=== PATIENT | female | born 1995 | race Caucasian/White ===

== ENCOUNTER → 2016-12-11 | Outpatient (CLI) | payer OTHER, MEDICARE ==
[~2016-12-11] MED LIST: HYDR-3812 PO; IBUP-1773 PO; IRON15TA3 PO; LEVO50TA6 PO; PREN-53 PO
--- NOTE | 2016-12-11 16:08 | Diagnostic Imaging Report ---
First trimester OB ultrasound. INDICATION: Dating. FINDINGS: There is a normal-appearing single intrauterine . An embryo is seen with cardiac activity at 130 beats per minute. The ovaries are not seen, probably obscured by bowel gas. The crown-rump length is at 6 weeks and 4 days. ALICE is 08/02/17. IMPRESSION: Live single intrauterine . Dictated by: Dictated on workstation # [id number]
== END ==
LOC: RAD 15:16
PROVIDERS: ATTEND Family Medicine
DX: Z36.87 Encounter for antenatal screening for uncertain dates (principal); Z3A.01 Less than 8 weeks gestation of pregnancy
CPT/HCPCS: 76801

== ENCOUNTER → 2017-03-17 | Outpatient (CLI) | payer OTHER, MEDICARE ==
[~2017-03-17] MED LIST changes: +ACHD5005 PO; -HYDR-3812 PO
--- NOTE | 2017-03-17 15:31 | Diagnostic Imaging Report ---
INDICATION: survey. TECHNIQUE: Multiple real-time grayscale images were obtained over the gravid uterus. COMPARISON: There are no prior studies available for comparison. FINDINGS: There is a single live fetus in variable presentation. heart motion was noted, and a rate of 147 BPM was recorded. There were no abnormalities identified. The growth parameters are fairly uniform. The placenta is fundal, and there is no previa. The amniotic fluid volume is within normal limits. The cervix was identified and measures 4 cm in length. IMPRESSION: 1. There is a single live fetus of approximately 20 weeks 3 days gestation, +/-1.5 weeks. The EDC is August 01, 2017. 2. There were no abnormalities identified. 3. The growth parameters are fairly uniform. Biometrical measurements are as follows: Biparietal 4.79 cm, age 20 weeks 4 days. Head circumference 17.97 cm, age 20 weeks 3 days. Abdominal circumference 14.26 cm, age 19 weeks 5 days. Femur length 3.37 cm, age 20 weeks 4 days. Sonographic estimate age: 20 weeks 3 days. Sonographic estimated date of delivery: 08/01/2017. Estimated Weight: 333 gm (+/- 49 gm). LMP percentile: 35%. heart rate: 147 beats per minute. Cervical length: 4.0 cm. number: 1 of 1. Dictated by: Dictated on workstation # [id number]
== END ==
LOC: RAD 09:28
PROVIDERS: ATTEND Family Medicine
DX: Z36.89 Encounter for other specified antenatal screening (principal); Z3A.20 20 weeks gestation of pregnancy
CPT/HCPCS: 76805; 76817

== ENCOUNTER 2017-07-28 06:00 | Inpatient (IN) | payer OTHER, MEDICARE ==
[2017-07-28] VITALS (34 sets, daily range): BP systolic 97–124; BP diastolic 54–85
[~2017-07-28] VITALS: Ht 162.6 cm; Wt 76.8 kg
[~2017-07-28 06:00] MED LIST changes: +METHYLERGONOVINE 0.2 MG (MEHTERGINE) TAB PO SCH
--- OUTSIDE RECORDS SUMMARY | 2017-07-28 06:35 | XMS REPORT | Continuity of Care Document ---
Author Author [facility] Address Unknown Phone Unavailable Allergies Active Description Code Type Severity Reaction Onset Reported/Identified Relationship to Patient Clinical Status Yes No Known Allergies [id number] Drug Allergy Unknown N/A 12/13/2014 Medications There is no data. Problems Date Dx Coded Attending Type Code Diagnosis Diagnosed By 05/20/2014 MARQUITA MALDONADO MD, Ot V28.89 08/05/2014 MARQUITA MALDONADO MD, Ot V28.81 11/21/2014 MARQUITA MALDONADO MD, Ot O36.8130 DECREASED MOVEMENTS, THIRD TRIMEST 11/21/2014 MARQUITA MALDONADO MD, Ot Z3A.36 36 WEEKS GESTATION OF 12/13/2014 MARQUITA MALDONADO MD Ot V28.89 12/13/2014 MARQUITA MALDONADO MD Ot V28.81 12/15/2014 MARQUITA MALDONADO MD, Ot V28.89 12/15/2014 MARQUITA MALDONADO MD, Ot V28.81 12/16/2014 MARQUITA MALDONADO MD Ot O80 ENCOUNTER FOR FULL-TERM UNCOMPLICATED DE 12/16/2014 MARQUITA MALDONADO MD Ot Z23 ENCOUNTER FOR IMMUNIZATION 12/16/2014 MARQUITA MALDONADO MD Ot Z37.0 SINGLE LIVE 12/16/2014 MARQUITA MALDONADO MD, Ot Z3A.40 40 WEEKS GESTATION OF 12/12/2016 MARQUITA MALDONADO MD, Ot Z36.87 ENCOUNTER FOR SCREENING FOR UN 12/12/2016 MARQUITA MALDONADO MD, Ot Z3A.01 LESS THAN 8 WEEKS GESTATION OF 12/31/2016 MARQUITA MALDONADO MD, Ot Z36.87 ENCOUNTER FOR SCREENING FOR UN 12/31/2016 MARQUITA MALDONADO MD, Ot Z3A.01 LESS THAN 8 WEEKS GESTATION OF 02/06/2017 MARQUITA MALDONADO MD, Ot Z36.87 ENCOUNTER FOR SCREENING FOR UN 02/06/2017 MARQUITA MALDONADO MD Ot Z3A.01 LESS THAN 8 WEEKS GESTATION OF 03/13/2017 MARQUITA MALDONADO MD Ot V28.89 OTHER SPECIFIED SCREENING 03/13/2017 MARQUITA MALDONADO MD Ot V28.81 ENCOUNTER FOR ANATOMIC SURVEY 03/18/2017 MARQUITA MALDONADO MD Ot Z36.89 ENCOUNTER FOR OTHER SPECIFIED 03/18/2017 MARQUITA MALDONADO MD, Ot Z3A.20 20 WEEKS GESTATION OF 03/27/2017 MARQUITA MALDONADO MD, Ot Z36.89 ENCOUNTER FOR OTHER SPECIFIED 03/27/2017 MARQUITA MALDONADO MD, Ot Z3A.20 20 WEEKS GESTATION OF 04/15/2017 MARQUITA MALDONADO MD, Ot Z36.89 ENCOUNTER FOR OTHER SPECIFIED 04/15/2017 MARQUITA MALDONADO MD, Ot Z3A.20 20 WEEKS GESTATION OF Procedures Code Description Performed By Performed On [id number] DIVISION OF FEMALE PERINEUM, EXTERNAL AP 12/14/2014 Results There is no data. Encounters ACCT No. Visit Date/Time Discharge Status Pt. Type Provider Facility Loc./Unit Complaint [id number] 03/17/2017 09:28:00 03/17/2017 23:59:59 CLS Outpatient MARQUITA MALDONADO MD Via [facility] RAD SURVEY [id number] 12/11/2016 15:16:00 12/11/2016 23:59:59 CLS Outpatient MARQUITA MALDONADO MD [facility] RAD DATING [id number] 12/13/2014 18:52:00 12/16/2014 12:35:00 DIS Inpatient MARQUITA MALDONADO MD [facility] LDRP INDUCTION [id number] 11/21/2014 15:46:00 11/21/2014 16:06:00 DIS Outpatient MARQUITA MALDONADO MD [facility] WSo NON STRESS TEST [id number] 07/20/2014 09:29:00 07/20/2014 23:59:59 CLS Outpatient MARQUITA MALDONADO MD [facility] RAD SURVEY [id number] 05/06/2014 13:48:00 05/06/2014 23:59:59 CLS Outpatient ERICA VILLEDA, MARQUITA Duran [facility] RAD DATING [id number] 12/28/2013 11:16:53 12/28/2013 11:16:53 DIS Outpatient [id number] 11/21/2014 16:00:06 ACT Document Registration
[2017-07-28] MEDS ORDERED: D5 LR IV SOLUTION 1,000 ML IV ONE (06:37)
[2017-07-28] MEDS ORDERED: D5 LR IV SOLUTION 1,000 ML IV SCH (06:50)
[2017-07-28 06:56] LABS: BASOPHILS % (AUTO) 0 % (0-10); EOSINOPHILS % (AUTO) 0 % (0-10); HEMATOCRIT 33 % (35-52); HEMOGLOBIN 11.2 G/DL (11.5-16.0); LYMPHOCYTES # (AUTO) 2.1 X 10^3 (1.0-4.0); LYMPHOCYTES % (AUTO) 28 % (12-44); MEAN CORPUSCULAR HEMOGLOBIN 31 PG (25-34); MEAN CORPUSCULAR HGB CONC 35 G/DL (32-36); MEAN CORPUSCULAR VOLUME 89 FL (80-99); MEAN PLATELET VOLUME 12.7 FL (7.4-10.4); MONOCYTES # (AUTO) 0.5 X 10^3 (0.0-1.0); MONOCYTES % (AUTO) 7 % (0-12); NEUTROPHILS # (AUTO) 4.7 X 10^3 (1.8-7.8); NEUTROPHILS % (AUTO) 64 % (42-75); PLATELET COUNT 123 10^3/uL (130-400); RED BLOOD COUNT 3.67 10^6/uL (4.35-5.85); WHITE BLOOD COUNT 7.4 10^3/uL (4.3-11.0)
[2017-07-28] MEDS ORDERED: SUFENTA 0.6MCG/ML BUPIVA 0.125 100 ML ONE (07:08)
[2017-07-28] MEDS ORDERED: LACTATED RINGERS 1,000 ML IV ONE (07:08)
[2017-07-28] MEDS ORDERED: OXYTOCIN/NORMAL SALINE 500 ML IV SCH ×2 (07:20→12:31)
--- NOTE | 2017-07-28 07:20 | History & Physical-OB ---
OB - Chief Complaint & HPI Date/Time Date of Admission: Date of Admission: Jul 28, 2017 at 06:10 Time Seen by Provider: 06:55 Chief Complaint/History OB-Reason for Admission/Chief: Induction of Labor Hx : 2 Hx Para: 1 Expected Date of Delivery: Jul 31, 2017 Gestational Age in Weeks: 39 Gestational Age in Days: 4 Admission Nurse Assessment Rev: Yes History of Labs GBS negative Allergies and Home Medications Allergies Coded Allergies: No Known Allergies (Verified Allergy, Unknown, 07/28/17) Home Medications Levothyroxine Sodium 50 Mcg Tablet, 50 MCG PO DAILY, (Reported) [id number]/Iron Fumarate/FA/Dss 1 Each Tablet, 1 EACH PO DAILY, (Reported) Patient Home Medication List Home Medication List Reviewed: Yes OB - History Hx of Present Care: Yes Ultrasounds: Normal mid trimester US Obstetrical Complications: None Medical Complications: None Delivery History Hx Blood Disorders: No Adverse Rxn to Tranfusion: No Patient Past Medical History No chronic medical problems Social History/Family History Recent Infectious Disease Expo: No Immunizations Hepatitis A: Yes Hepatitis B: Yes Tetanus Booster (TDap): More than 5yrs Date of Influenza Vaccine: Dec 01, 2014 OB - Admission Exam Physical Exam Vitals: Vital Signs 07/28/17 06:20 Temp 97.4 Pulse 71 Resp 18 B/P (MAP) 117/79 (92) O2 Delivery Room Air HEENT: Moist Membranes Heart: Rhythm Normal Lungs: Clear Abdomen: Gravid Cervical Dilatation: 3cm Effacement: 75% Station: -3 Membranes: Intact Heart Rate: 140's Accelerations: Accelerations Present Short Term Variability: Present Half-Way Variability: Average (6-25) Contractions on Admission: >10 Minutes Apart Intensity: Mild Anthony Scoring Tool (Modified) Dilation (cm): 3-4cm (2) Effacement (%): 51-79% (2) Descent/Station: -3 (0) Cervix Consistency: Soft (2) Cervix Position: Middle/Mid-Position (1) Anthony Score: 8 Labs Laboratory Tests Test 07/28/17 06:30 Range/Units White Blood Count 7.4 4.3-11.0 10^3/uL Red Blood Count 3.67 L 4.35-5.85 10^6/uL Hemoglobin 11.2 L 11.5-16.0 G/DL Hematocrit 33 L 35-52 % Mean Corpuscular Volume 89 80-99 FL Mean Corpuscular Hemoglobin 31 25-34 PG Mean Corpuscular Hemoglobin Concent 35 32-36 G/DL Red Cell Distribution Width 13.0 10.0-14.5 % Platelet Count 123 L 130-400 10^3/uL Mean Platelet Volume 12.7 H 7.4-10.4 FL Neutrophils (%) (Auto) 64 42-75 % Lymphocytes (%) (Auto) 28 12-44 % Monocytes (%) (Auto) 7 0-12 % Eosinophils (%) (Auto) 0 0-10 % Basophils (%) (Auto) 0 0-10 % Neutrophils # (Auto) 4.7 1.8-7.8 X 10^3 Lymphocytes # (Auto) 2.1 1.0-4.0 X 10^3 Monocytes # (Auto) 0.5 0.0-1.0 X 10^3 Eosinophils # (Auto) 0.0 0.0-0.3 10^3/uL Basophils # (Auto) 0.0 0.0-0.1 10^3/uL OB - Assessment/Plan/Diagnosis Assessment Assessment: induction of labor Admission Dx IUP at 39w4d gestation Admission Status: Inpatient Order (span 2 midnights) Reason for Inpatient Admission: Labor Plan Plan: Induction Induction Method: AROM Other Plan desires epidural MARQUITA MALDONADO MD Jul 28, 2017 07:20
[2017-07-28] MEDS ORDERED: BUPIVACAINE 0.25% 30 ML (SENSORCAINE) VIAL ONE (07:46)
[2017-07-28] MEDS ORDERED: LIDOCAINE PF 2% 5 ML (XYLOCAINE) VIAL ONE (07:46)
[2017-07-28] MEDS ORDERED: fentaNYL INJECTION 100 MCG/2 ML AMP ONE (07:46)
[2017-07-28] MEDS ORDERED: LACTATED RINGERS 1,000 ML IV SCH (08:40)
[2017-07-28] MEDS ORDERED: NALOXONE 0.4 MG/ML 1 ML (NARCAN) VIAL IV PRN (08:45)
[2017-07-28] MEDS ORDERED: ONDANSETRON 4 MG/2 ML (SDV) Z0FRAN IV PRN (08:45)
[2017-07-28] MEDS ORDERED: diphenhydrAMINE 50 MG/ML INJ (BENADRYL) IV PRN (08:45)
[2017-07-28] MEDS ORDERED: EPIDURAL (SUFENTA 0.6MCG/ML BUPIVA 0.125%) 100 ML BAG EPI PRN (08:45)
[2017-07-28] MEDS ORDERED: PNV11TAB5 PO (09:04)
--- NOTE | 2017-07-28 12:35 | OB Labor & Delivery Record ---
L&D History Date of Service Date of Service: Jul 28, 2017 History Expected Date of Delivery: Aug 02, 2017 Gestational Age in Weeks: 39 Hx : 2 Hx Para: 2 Complications Events: Routine care Operative Indications (Cesarea: N/A-Vaginal Delivery Intrapartal Events: None L&D Stage1 Stage One Onset of Labor - Date: Jul 28, 2017 Onset of Labor - Time: 07:15 Monitors and Tracing Monitor Mode: Internal Heart Rate: 125 Monitor Accelerations: Uniform Monitor Decelerations: Variable Station: -2 Senior Living Variability: Average (6-10) Short Term Variability: Present Presentation: Vertex Vital Signs VS - Last 72 Hours, by Label 07/28/17 07/28/17 07/28/17 07/28/17 06:20 07:30 07:50 08:00 Temp 97.4 97.9 Pulse 71 67 82 81 Resp 18 18 18 18 B/P (MAP) 117/79 (92) 114/76 (89) 124/85 (98) 116/80 (92) Pulse Ox 100 100 O2 Delivery Room Air Room Air Room Air Room Air 07/28/17 07/28/17 07/28/17 07/28/17 08:03 08:14 08:15 08:16 Pulse 78 76 76 77 Resp 18 18 18 18 B/P (MAP) 116/76 (89) 106/63 (77) 106/63 (77) 108/64 (79) Pulse Ox 100 99 100 100 O2 Delivery Room Air Room Air Room Air Room Air 07/28/17 07/28/17 07/28/17 07/28/17 08:22 08:30 08:45 09:00 Temp 97.0 Pulse 77 73 70 60 Resp 18 18 18 18 B/P (MAP) 108/67 (81) 109/62 (78) 107/68 (81) 109/66 (80) Pulse Ox 100 98 98 100 O2 Delivery Room Air Room Air Room Air Room Air 07/28/17 07/28/17 07/28/17 07/28/17 09:15 09:30 09:45 10:00 Pulse 70 65 67 61 Resp 18 18 18 18 B/P (MAP) 106/70 (82) 102/64 (77) 108/66 (80) 104/67 (79) Pulse Ox 100 100 100 100 O2 Delivery Room Air Room Air Room Air Room Air 07/28/17 07/28/17 07/28/17 07/28/17 10:15 10:30 10:45 11:00 Temp 98.0 Pulse 66 68 63 67 Resp B/P (MAP) 107/68 (81) 114/54 (74) 110/59 (76) 104/65 (78) Pulse Ox 100 100 100 99 O2 Delivery Room Air Room Air Room Air Room Air Signs of Distress by FHT Signs of Distress no Rupture of Membranes Spontaneous Ruture of Membrane: No Amniotic Membrane Rupture Time: 706 Amniotic Membrane Fluid Desc.: Clear Induction/Anesthesia Epidural Cath Placement - Time: 814 L&D Stage2 Stage Two Stage II Date: Jul 28, 2017 Stage II Time: 11:53 Monitors and Tracing Monitor Mode: Internal Heart Rate: 125 Monitor Accelerations: Uniform Monitor Decelerations: Variable Senior Living Variability: Average (6-10) Short Term Variability: Present Position: Left Occiput Anterior Signs of Distress by FHT Signs of Distress no Cord Descript/Complications Cord Vessel Description: 3 Vessels Delivery Type Delivery Method: Spontaneous Vaginal Anterior Shoulder: Left Episiotomy/Perineal Laceration Episiotomy Description: Midline Sutures Used: Vicryl Condition of Delivery 1 minute Comment: 8 5 minute Comment: 9 Condition of Condition of Infant: Living Exam: No Observed Abnormalities Resuscitation Resuscitation: N/A - Spontaneous Resp L&D Stage3 Stage Three Stage III Date: Jul 28, 2017 Stage III Time: 11:58 Pictocin Pitocin Administration mu/min: 8 Pitocin ml/hr: 8 Pitocin Administration Comment: Pitocin started per Protocol. Placenta Delivery Placenta Delivery: Spontaneous Delivery Summary Summary Estimated blood loss (mL): 150 Condition of Delivery Examined: Cervix Examined Post Hemorrhage: No Intervention Required none MARQUITA MALDONADO MD Jul 28, 2017 12:35
[2017-07-28] MEDS ORDERED: HYDROcodone/APAP 5 MG/325 MG (LORTAB) TAB PO PRN (12:45)
[2017-07-28] MEDS ORDERED: WITCH HAZEL(TUCKS) 40 EA JAR TOP PRN (12:45)
[2017-07-28] MEDS ORDERED: BENZOCAINE/MENTHOL (DERMOPLAST) 56 ML CAN TP PRN (12:45)
[2017-07-28] MEDS ORDERED: MEASLES,MUMPS,RUBELLA 1 EA INJ SQ ONE (12:45)
[2017-07-28] MEDS ORDERED: TETANUS,DIPTH,PERTUSS P/F (BOOSTRIX) 0.5 ML VIAL IM ONE (12:45)
[2017-07-28] MEDS: IBUPROFEN 600 MG (MOTRIN) TAB PO SCH ×3 (13:50→21:37)
[2017-07-28] MEDS: METHYLERGONOVINE 0.2 MG (MEHTERGINE) TAB PO SCH ×2 (13:57→15:57)
[2017-07-28] MEDS ORDERED: CATHETER FLUSH 10 ML SYR IV SCH (14:00)
[2017-07-28] MEDS ORDERED: METHYLERGONOVINE 0.2 MG (MEHTERGINE) TAB PO ONE (15:55)
[2017-07-28] MEDS: CATHETER FLUSH 10 ML SYR IV SCH (16:11)
[2017-07-29] VITALS: BP 108/57
[2017-07-29 04:00] VITALS: BP 104/66
[2017-07-29] MEDS: IBUPROFEN 600 MG (MOTRIN) TAB PO SCH ×2 (04:22→09:48)
[2017-07-29] MEDS: CATHETER FLUSH 10 ML SYR IV SCH (04:36)
[2017-07-29] MEDS ORDERED: LEVOTHYROXINE 50 MCG (LEVOTHROID) TAB PO SCH (06:30)
[2017-07-29] MEDS ORDERED: PRENATAL VITAMIN 1 EA TAB PO SCH (07:00)
[2017-07-29 07:02] LABS: BASOPHILS % (AUTO) 0 % (0-10); EOSINOPHILS % (AUTO) 0 % (0-10); HEMATOCRIT 30 % (35-52); HEMOGLOBIN 9.8 G/DL (11.5-16.0); LYMPHOCYTES % (AUTO) 25 % (12-44); MEAN CORPUSCULAR HEMOGLOBIN 30 PG (25-34); MEAN CORPUSCULAR HGB CONC 33 G/DL (32-36); MEAN CORPUSCULAR VOLUME 90 FL (80-99); MEAN PLATELET VOLUME 12.7 FL (7.4-10.4); MONOCYTES # (AUTO) 0.5 X 10^3 (0.0-1.0); MONOCYTES % (AUTO) 6 % (0-12); NEUTROPHILS # (AUTO) 5.6 X 10^3 (1.8-7.8); NEUTROPHILS % (AUTO) 69 % (42-75); PLATELET COUNT 111 10^3/uL (130-400); RED BLOOD COUNT 3.32 10^6/uL (4.35-5.85); RED CELL DISTRIBUTION WIDTH 13.1 % (10.0-14.5); WHITE BLOOD COUNT 8.1 10^3/uL (4.3-11.0)
[2017-07-29 08:45] VITALS: BP 111/67
--- NOTE | 2017-07-29 11:05 | Anesthesia-Regional Post-Op ---
Regional Patient Condition Mental Status: Alert, Oriented x3 Circulation: Same as Pre-Op Headache: Absent Sensation: Full Recovery Motor Block: Absent Post Op Complications Complications None Follow Up Care/Instructions Patient Instructions None needed. Anesthesia/Patient Condition Patient is doing well, no complaints, stable vital signs, no apparent adverse anesthesia problems. No complications reported per nursing. NATALIE PANDYA CRNA Jul 29, 2017 11:04
[2017-07-29 12:50] VITALS: BP 103/69
--- NOTE | 2017-07-29 12:57 | Discharge Summary ---
Diagnosis/Chief Complaint Date of Admission Jul 28, 2017 at 06:10 Date of Discharge July 29, 2017 Discharge Date: Jul 29, 2017 Discharge Time: 14:00 Admission Diagnosis Admission Diagnosis 1. Intrauterine at 39 weeks gestation Discharge Diagnosis 1. Intrauterine at 39 weeks gestation Reason Hospital Visit 22-year-old female 2 now erm 2 initially presented to labor and delivery for induction of labor at 39 weeks 4 days' gestation. Patient essentially had an unremarkable course. Her EDC is July 31, 2017. Her GBS status is negative. Discharge Summary-OBS Procedures 1. Epidural per anesthesia 2. Spontaneous vaginal delivery 3. Repair of midline episiotomy Discharge Physical Examination Allergies: Coded Allergies: No Known Allergies (Verified Allergy, Unknown, 07/28/17) Vitals & I&Os Vital Signs Date Time Temp Pulse Resp B/P (MAP) Pulse Ox O2 Delivery O2 Flow Rate FiO2 07/29/17 08:45 99.2 70 18 111/67 (82) 96 Room Air 07/28/17 11:45 10.00 General Appearance: No Acute Distress Respiratory: Clear to Auscultation Cardiovascular: Regular Rate Abdominal: Soft (With uterus firm) Hospital Course Following admission patient underwent artificial rupture of membranes. Fluid was noted to be clear. She contracted on her own with Pitocin augmentation. She did receive epidural per anesthesia. Eventually she went on to completion of delivered over a midline episiotomy a term viable female. See labor and delivery summary for full details. Following delivery patient underwent routine care orders. She had no complications during the remainder of hospital stay. Her hemoglobin remained stable. She was tolerating ambulation in the hallway. There was no shortness of breath or leg pain. She was felt ready for dismissal during the afternoon of July 29, 2017. Pending Labs Laboratory Tests 07/29/17 06:37: White Blood Count 8.1, Red Blood Count 3.32, Hemoglobin 9.8, Hematocrit 30, Mean Corpuscular Volume 90, Mean Corpuscular Hemoglobin 30, Mean Corpuscular Hemoglobin Concent 33, Red Cell Distribution Width 13.1, Platelet Count 111, Mean Platelet Volume 12.7, Neutrophils (%) (Auto) 69, Lymphocytes (%) (Auto) 25 , Monocytes (%) (Auto) 6, Eosinophils (%) (Auto) 0, Basophils (%) (Auto) 0, Neutrophils # (Auto) 5.6, Lymphocytes # (Auto) 2.0, Monocytes # (Auto) 0.5, Eosinophils # (Auto) 0.0, Basophils # (Auto) 0.0 Discharge Instructions to patient/family Please see electronic discharge instructions given to patient. Discharge Medications Reviewed and agree with Discharge Medication list on patient's Discharge Instruction sheet Clinical Quality Measures DVT/VTE Risk/Contraindication: Risk Factor Score Per Nursin RFS Level Per Nursing on Admit: 1=Low/No VTE PPX MARQUITA MALDONADO MD Jul 29, 2017 12:57
[2017-07-29] MEDS ORDERED: IBUP-844 PO (12:59)
--- NOTE | 2017-07-29 13:00 | Discharge Inst-Women's Service ---
Discharge Inst-Women's Serv Depart Medication/Instructions New, Converted or Re-Newed RX: RX on Chart Consults/Follow Up Additional Follow Up: Yes (Dr Maldonado in 6 weeks) Activity Driving Instructions: No Driving for 1 Week Nothing Inside Vagina: No [place]ong (For 6 weeks) Diet Discharge Diet: No Restrictions Return to The Hospital For: As below Symptoms to Report to : Bleeding Excessive, Pain Increased, Fever Over 101 Degrees F, Vaginal Discharge Foul For Any Problems or Questions: Contact Your Physician MARQUITA MALDONADO MD Jul 29, 2017 13:00
[2017-07-29] MEDS ORDERED: TETANUS,DIPTH,PERTUSS P/F (BOOSTRIX) 0.5 ML VIAL IM ONE (13:12)
== END 2017-07-29 15:25 | disposition home or self-care (01) | DRG 775 ==
LOC: LDRP 06:10
PROVIDERS: ADMIT Family Medicine; ATTEND Family Medicine
PROC: 10E0XZZ Delivery of Products of Conception, External Approach (ICD-10-PCS; principal; 2017-07-28)
PROC: 0W8NXZZ Division of Female Perineum, External Approach (ICD-10-PCS; 2017-07-28)
PROC: 3E033VJ Introduction of Other Hormone into Peripheral Vein, Percutaneous Approach (ICD-10-PCS; 2017-07-28)
DX: O80 Encounter for full-term uncomplicated delivery (principal); Z37.0 Single live birth; Z3A.39 39 weeks gestation of pregnancy; Z23 Encounter for immunization
CPT/HCPCS: 36415; 85025; 86850; 86900; 86901; 90715

== ENCOUNTER 2019-05-04 06:14 | Inpatient (IN) | payer OTHER, MEDICARE ==
[~2019-05-04] VITALS: Ht 162.6 cm; Wt 79.6 kg
[2019-05-04] VITALS (42 sets, daily range): BP systolic 88–120; BP diastolic 51–95
[~2019-05-04 06:14] MED LIST changes: +IBUP-844 PO; -METHYLERGONOVINE 0.2 MG (MEHTERGINE) TAB PO SCH; +PNV11TAB5 PO
[2019-05-04] MEDS ORDERED: D5 LR IV SOLUTION 1,000 ML IV SCH (06:22)
--- OUTSIDE RECORDS SUMMARY | 2019-05-04 06:24 | XMS REPORT ---
Author Author Shama BARRON Organization [facility] Address [address] [place] [address] Care Team Providers Care Engineering And Scientific Programmer Name Role Phone BARRON, PRIYANKA Unavailable PROBLEMS Type Condition ICD9-CM Code [id number] Code Onset Dates Condition S tatus SNOMED Code Problem Generalized anxiety disorder F41.1 A ctive [id number] ALLERGIES No Information ENCOUNTERS Encounter Location Date Diagnosis [facility] [address] [facility] [id number] [address] [place] [phone] Jan, [facility] [address] [facility] [id number] [address] [place] [phone] Jan, Generalized anxiety disorder F41.1 [facility] [address] [facility] [id number] [address] [place] [phone] Dec, Generalized anxiety disorder F41.1 [facility] [address] [facility] [id number] [place] [id number] Dec, [facility] [address] [facility] [id number] [address] [place] [phone] Dec, IMMUNIZATIONS No Known Immunizations SOCIAL HISTORY Never Assessed REASON FOR VISIT f/u anxiety PLAN OF CARE Activity Details Follow Up Next available Reason: VITAL SIGNS MEDICATIONS Unknown Medications RESULTS No Results PROCEDURES Procedure Date Ordered Result Body Site Psychotherapy, patient &/family, 60 minutes, established patient Jan 16, 2018 INSTRUCTIONS MEDICATIONS ADMINISTERED No Known Medications MEDICAL (GENERAL) HISTORY Type Description Date Surgical History tonsil 2010
--- OUTSIDE RECORDS SUMMARY | 2019-05-04 06:24 | XMS REPORT ---
Author Author [employer] Organization [employer] Address [address] [address] Care Team Providers Care Edge Blacker Name Role Phone GREGOR MALDONADO Unavailable PRIYANKA BARRON Unavailable BARRON, JAY Unavailable Migration, Doctor Unavailable Unavailable Allergies Normalized Allergy Reported Date of Reaction(s) Care Provider Facility Allergy Type classification allergen Allergy Onset Allergy to Unclassified No Known 07-28-2017 - No Known GREGOR RAMOS [facility] Sub[facility] (1 Allergies Allergies [address] Hospital source.) ([id number]) ([id number]) [facility] ([id number]) Medications Medication Ingredient Drug Dose Dates Status Sig Sig Care Class(es) (Normalized) (Original) Provid er acetaminoph acetaminoph Opioid 12-17-19 Complete no Acetamin ophe Gregor en 325 mg / en / Agonist 15 - d information n/Hydrocodo n J HYDROcodone HYDROcodone 07-29-19 e Bitart Blanco bitartrate 18 (Hydrocodone (no 5 mg oral /Acetaminoph phone) tablet (1 en 5/325MG source.) Tablet) 1 Each Tablet, 1 TabOral Every 4HRS as needed for Pain 12/16/14 Discontinued ibuprofen ibuprofen Nonsteroida 600 mg 12-17-19 Complete take 1 Ibuprofen Gregor 600 mg oral Translation l 15 - d tablet by (Ibu) 600 Mg J tablet (2 s: [ Anti-inflam 07-29-19 mouth every Tablet 600 Blanco sources.) Ibuprofen matory Drug 18 six hours, Mg ORAL ( no 600 MG Oral then take 1 Every 6 phone) Tablet] tablet by Hours 30 Tab mouth 07/29/17 iron iron no 15 mg 12-17-19 Complete no Iron,Carbon y (no carbonyl 15 carbonyl information 15 d information l (Ir on phone) mg chewable Chews) 15 Mg tablet (1 Tab.chew, 15 source.) Mg Oral Daily Discontinued no Hcd739/Fa/O no Complete no Ryw143/Fa/Om (n o information mega3/Dha/F information d information ega3/ Dha/Fis phone) (1 source.) maritza Oil h Oil ( ( Gummies) 1 Gummies) 1 Each Each Tab.chew Tab.chew 2 Each ORAL no Fhv367/Iron no 07-29-19 Complete no Bme270/Iron ( no information Fumarate/Fa information 18 d information Fu marate/Fa/ phone) (1 source.) /Dss Dss ( ( 19 19 Tablet) Tablet) 1 1 Each Each Tablet, Tablet, 1 1 Each Oral Each Oral Daily Discontinued levothyroxi thyroxine l-Thyroxine 0.05 Complete take 1 Levothyr oxin (no ne sodium mg d tablet by e Sodium 50 phone) 0.05 mg mouth once Mcg Tablet oral tablet daily 50 Mcg ORAL (1 source.) Daily Problems Active Problems Problem Normalized Date of Normalized Normalized Provider Fac ility Classification Problem(s) Problem Problem Problem Sta tus Onset/Resoluti Duration on Normal Encounter for Episodic Active no name no infor mation full-term and/or uncomplicated delivery (6 delivery sources.) Translations: [ SINGLE LIVE ] Immunizations Encounter for Episodic Active no name no i nformation and screening immunization for infectious disease (6 sources.) Anxiety Generalized Chronic Active PRIYANKA [facility] ity disorders (8 anxiety [facility] [facility] sources.) disorder of [facility] Translations: [place] ([id number]) [ Generalized anxiety disorder, - Generalized anxiety disorder F41.1] Past or Other Problems Problem Normalized Date of Normalized Normalized Provider Fac ility Classification Problem(s) Problem Problem Problem Sta tus Onset/Resoluti Duration on NEGATED 20 weeks no information no information no name no information no gestation of information (17 sources.) Translations: [ 39 WEEKS GESTATION OF , 36 WEEKS GESTATION OF ] Other Decreased Episodic Completed GREGOR MALDONADO , Not Kina ilable complications MD ([id number]) of movements, (1 source.) third trimester, not applicable or unspecified Unclassified Encounter for no information no information no nam e no information (10 sources.) other specified screening NEGATED Other Episodic Completed GREGOR MALDONADO , Not Selam labmadelyn no specified MD ([id number]) information (2 sources.) screening Translations: [ ENCOUNTER FOR ANATOMIC SURVEY] Procedures Procedure Normalized Procedure Procedure Result Performer Facility Date 07-28-2017 Anesthesia no information GREGOR MALDONADO [facility] ([id number]) DELIVERY OF PRODUCTS no information no name (no phone) no in formation OF CONCEPTION, EXTE DIVISION OF FEMALE no information no name (no phone) no info rmation PERINEUM, EXTERNAL AP INTRODUCTION OF OTH no information no name (no phone) no inf ormation HORMONE INTO PERIPH 01-02-2018 Psychiatric diagnostic no information no name (no p joceline) [facility] ([id number]) 01-16-2018 Psychotherapy no information no name (no phone) [facility] w/patient 60 minutes [facility] ([id number]) Immunizations Normalized Immunization Date Notes Care Provider Facili ty Immunization tetanus toxoid, 07-29-2017 - no information GREGOR MALDONADO [address] [facility] reduced diphtheria 07-29-2017 [facility] ([id number]) toxoid, and acellular pertussis vaccine, adsorbed Results Test Name Value Interpretation Reference Range Date Time Fa cility (Normalized) (Normalized) (Medline Reference) venous blood hemoglobin measurement (mass/volume) on 2017-07-29 Hemoglobin (HGB) 9.8 g/dL (L) 12 - 18 g/dL [facility] ([id number]) blood neutrophils automated count (number/volume) on 2017-07-29 Neutrophils 5.6 10*3/uL (no code) 1.5 - 7.8 [facility] 10*3/[facility] ([id number]) blood monocytes/100 leukocytes on 2017-07-29 Monocytes/100 6 % (no code) 2 - 8 % [facility] leukocytes [facility] (59826) blood monocytes automated count (number/volume) on 2017-07-29 Monocytes 0.5 10*3/uL (no code) 0.2 - 1.1 [facility] 10*3/uL [facility] (33072) blood lymphocytes automated count (number/volume) on 2017-07-29 Lymphocytes 2.0 10*3/uL (no code) 0.85 - 4.1 [facility] 10*3/uL [facility] (71911) blood leukocytes automated count (number/volume) on 2017-07-29 WBC (Leukocytes) 8.1 10*3/uL (no code) 3.8 - 10.8 Via [facility] 10*3/uL [facility] ([id number]) blood hematocrit (volume fraction) on 2017-07-29 Hematocrit (HCT) 30 % (L) 39 - 51 % Via [facility] (68442) blood erythrocytes automated count (number/volume) on 2017-07-29 Erythrocytes 3.32 10*6/uL (L) 4.2 - 6.1 Via [facility] (RBC) 10*6/uL [facility] (21925) automated erythrocyte mean corpuscular volume on 2017-07-29 MCV 90 fL (no code) 80 - 100 fL Via [facility] ([id number]) automated erythrocyte mean corpuscular hemoglobin concentration measurement (mass/volume) on 2017-07-29 MCHC 33 g/dL (no code) 32 - 36 g/dL [facility] ([id number]) automated erythrocyte mean corpuscular hemoglobin (mass per erythrocyte) on 2017-07-29 MCH 30 pg (no code) 27 - 31 pg [facility] ([id number]) automated erythrocyte distribution width ratio on 2017-07-29 RDW-CA 13.1 % (no code) 11 - 15 % [facility] ([id number]) automated eosinophil count on 2017-07-29 Eosinophils 0.0 10*3/uL (no code) 0.05 - 1.5 Via [facility] 10*3/uL [facility] (76076) automated blood platelet mean volume measurement on 2017-07-29 Platelet mean 12.7 fL (H) 7.2 - 11.7 fL Via [facility] volume (PMV) [facility] (26409) automated blood platelet count (count/volume) on 2017-07-29 Platelets 111 10*3/uL (L) 150 - 400 Via [facility] 10*3/uL [facility] (95789) automated blood neutrophils/100 leukocytes on 2017-07-29 Neutrophils/100 69 % (no code) 40 - 60 % [facility] leukocytes [facility] ([id number]) automated blood lymphocytes/100 leukocytes on 2017-07-29 Lymphocytes/100 25 % (no code) 20 - 40 % [facility] leukocytes [facility] (50044) automated blood eosinophils/100 leukocytes on 2017-07-29 Eosinophils/100 0 % (no code) 1 - 4 % [facility] leukocytes [facility] ([id number]) automated blood basophils/100 leukocytes on 2017-07-29 Basophils/100 0 % (no code) 0.5 - 1 % Via [facility] (25907) automated blood basophil count (count/volume) on 2017-07-29 Basophils 0.0 10*3/uL (no code) 0 - 0.2 10*3/uL [facility] ([id number]) Vital Signs The data below is from unstructured sources Vital Response Date/Time Temperature (Fahrenheit) 98.2 degree s F (97.6 - 99.5) 11/21/2014 4:03pm Temperature Source Tympanic 11/21/2014 4:03pm Pulse Rate (adult) 68 bpm (60 - 90) 11/21/2014 4:03pm Respiratory Rate 20 bpm (12 - 24) 11/21/2014 4:03pm Blood Pressure 117/73 mm Hg 11/21/2014 4:03pm Pain Pain Intensity 0 2014 4:03pm Vital Response Date/Time Temperature (Fahrenheit) 98.8 degree s F (97.6 - 99.5) 07/29/2017 12:50pm Temperature (Calculated Celsius) 37. 96070 degrees C (36.4 - 37.5) 07/29/2017 12:50pm Temperature Source Temporal 07/29/2017 12:50pm Pulse Rate (adult) 77 bpm (60 - 90) 07/29/2017 12:50pm Respiratory Rate 20 bpm (12 - 24) 07/29/2017 12:50pm O2 Sat by Pulse Oximetry 99 % (88 - 100) 07/29/2017 12:50pm Blood Pressure 103/69 mm Hg 07/29/2017 12:50pm Blood Pressure Mean 80 mm Hg (65 - 110) 07/29/2017 12:50pm Pain Numeric Pain Scale 4 12:50pm Height (Feet) 5 feet 6:30am Height (Inches) 4.00 inches 07/28/2017 6:30am Height (Calculated Centimeters) 162. 404820 cm 07/28/2017 6:30am Weight (Pounds) 169 pounds 07/28/2017 6:30am Weight (Ounces) 4.0 oz 0 07/28/2017 6:30am Weight (Calculated Grams) 71853.51 gm 07/28/2017 6:30am Weight (Calculated Kilograms) 76.770 509 kilograms 07/28/2017 6:30am Calculated BMI 29.1 07/11 6:30am Weight Measurement Method Standing Scale 07/28/2017 6:30am Interventions No Information Plan of Treatment Normalized Care Care Detail Care Activity Date Care Provider F acility Activity () [facility] 01-16-2018 [place]YANKA [place] [address] [facility] F/u 60 min [place] ([id number]) (60) [facility] 01-27-2018 PRIYANKA [place] [address] [facility] F/u 60 min [place] ([id number]) Goals No Information Social History No Information Functional Status The data below is from unstructured sourcesNo functional status results.No functional status information available.No functional status information available. Mental Status No Information Encounters Encounter Normalized Encounter Encounter Diagnosis Care Provi hasmukh Organization Date Type 01-16-2018 () Behavioral Generalized anxiety PRIYANKAToby MAYER ETON (no [facility] F/u 60 min disorder phone) (no phon e) 01-16-2018 - 01-16-2018 01-02-2018 (-INTAKE) Behavioral Generalized anxiety PRIYANKA IBANSinai PRABHU (no [facility] Intake disorder phone) (no phone) 01-02-2018 - 01-02-2018 12-18-2013 [facility] no information Doctor Migration (no [facility] (no - phone) phone) 12-18-2013 - 12-18-2013 07-28-2017 Evaluation and no information GREGOR MALDONADO 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 (no phone ) 07-29-2017 inpatient 07-28-2017 Patient encounter no information no name (no phone) no organization name - (no phone) 07-29-2017 03-17-2017 Patient encounter no information no name (no phone) no organization name (no phone) 07-20-2014 Patient encounter no information no name (no phone) no organization name (no phone) 05-06-2014 Patient encounter no information no name (no phone) no organization name (no phone) Patient encounter no information no name (no phone) no organ ization name (no phone) 01-16-2018 Patient encounter no information no name (no phone) no organization name procedure (no phone) 01-02-2018 Patient encounter no information no name (no phone) no organization name procedure (no phone) Medical Equipment No Information Payers Normalized Payer Value Private Health Insurance [id number]) Medicare [id number] ([id number]) Discharge Instructions No hospital discharge instructions.No hospital discharge instruction information available. Advance Directives Directive Response Recor ded Date/Time Advance Directives No 6:30am Health Care Power of Compensator No 07/28/17 6:30am Organ Donor Yes 07/28/17 6:30am Resuscitation Status Full Code 07/28/17 6:30am Additional Source Comments This clinical document has been generated using [employer] software that has been certified by the Office of the National Coordinator for Health Information Technology (ONC 15.99.04.3023.Diam.31.00.0.454358) and the National Committee for Utility System Operator (NCQA, as an eMeasure certified technology). FOR RECORDS PERTAINING TO PATIENTS WHO ARE OR HAVE BEEN ENROLLED IN A CHEMICAL D EPENDENCY/SUBSTANCE ABUSE PROGRAM, SOME INFORMATION MAY BE OMITTED. This clinica l summary was aggregated from multiple sources. Caution should be exercised in using it in the provision of clinical care. This summary normalizes information from multiple sources, and as a consequence, information in this document may ma terially change the coding, format and clinical context of patient data. In dave tion, data may be omitted in some cases. CLINICAL DECISIONS SHOULD BE BASED ON T HE PRIMARY CLINICAL RECORDS. [employer] provides no warranty or guara ntee of the accuracy or completeness of information in this document.The followi ng information is based on time limited clinical information UNRECOGNIZED CONTENT PROVIDED BELOW FOR UNRECOGNIZED SECTION REASON FOR VISIT BH intakeBH f/u anxiety UNRECOGNIZED CONTENT PROVIDED BELOW FOR UNRECOGNIZED SECTION MEDICAL (GENERAL) HISTORY Type Description Date Surgical History tonsil 2010
--- OUTSIDE RECORDS SUMMARY | 2019-05-04 06:24 | XMS REPORT | Continuity of Care Document ---
Author Organization Unknown Address Unknown Phone Unavailable Allergies Active Description Code Type Severity Reaction Onset Reported/Identified Relationship to Patient Clinical Status Yes No Known Allergies [id number] Drug Allergy Unknown N/A 07/28/2017 Medications There is no data. Problems Date Dx Coded Attending Type Code Diagnosis Diagnosed By 05/20/2014 MARQUITA MALDONADO MD, Ot V28. 89 08/05/2014 MARQUITA MALDONADO MD, Ot V28. 81 11/21/2014 MARQUITA MALDONADO MD, Ot O36.8130 DECREASED MOVEMENTS, THIRD TRIMEST 11/21/2014 MARQUITA MALDONADO MD, Ot Z3A. 36 36 WEEKS GESTATION OF 12/13/2014 MARQUITA MALDONADO MD Ot V28. 89 12/13/2014 MARQUITA MALDONADO MD, Ot V28. 81 12/15/2014 MARQUITA MALDONADO MD, Ot V28. 89 12/15/2014 MARQUITA MALDONADO MD, Ot V28. 81 12/16/2014 MARQUITA MALDONADO MD, Ot O80 ENCOUNTER FOR FULL-TERM UNCOMPLICATED DE 12/16/2014 MARQUITA MALDONADO MD, Ot Z23 ENCOUNTER FOR IMMUNIZATION 12/16/2014 MARQUITA MALDONADO MD, Ot Z37. 0 SINGLE LIVE 12/16/2014 MARQUITA MALDONADO MD, Ot Z3A. 40 40 WEEKS GESTATION OF 12/12/2016 MARQUITA MALDONADO MD, Ot Z36. 87 ENCOUNTER FOR SCREENING FOR UN 12/12/2016 MARQUITA MALDONADO MD, Ot Z3A. 01 LESS THAN 8 WEEKS GESTATION OF 12/31/2016 MARQUITA MALDONADO MD, Ot Z36. 87 ENCOUNTER FOR SCREENING FOR UN 12/31/2016 MARQUITA MALDONADO MD, Ot Z3A. 01 LESS THAN 8 WEEKS GESTATION OF 02/06/2017 MARQUITA MALDONADO MD, Ot Z36. 87 ENCOUNTER FOR SCREENING FOR UN 02/06/2017 MARQUITA MALDONADO MD, Ot Z3A. 01 LESS THAN 8 WEEKS GESTATION OF 03/13/2017 MARQUITA MALDONADO MD Ot V28. 89 OTHER SPECIFIED SCREENING 03/13/2017 MARQUITA MALDONADO MD, Ot V28. 81 ENCOUNTER FOR ANATOMIC SURVEY 03/18/2017 MARQUITA MALDONADO MD Ot Z36. 89 ENCOUNTER FOR OTHER SPECIFIED 03/18/2017 MARQUITA MALDONADO MD Ot Z3A. 20 20 WEEKS GESTATION OF 03/27/2017 MARQUITA MALDONADO MD Ot Z36. 89 ENCOUNTER FOR OTHER SPECIFIED 03/27/2017 MARQUITA MALDONADO MD, Ot Z3A. 20 20 WEEKS GESTATION OF 04/15/2017 MARQUITA MALDONADO MD Ot Z36. 89 ENCOUNTER FOR OTHER SPECIFIED 04/15/2017 MARQUITA MALDONADO MD, Ot Z3A. 20 20 WEEKS GESTATION OF 07/21/2017 MARQUITA MALDONADO MD Ot Z36. 89 ENCOUNTER FOR OTHER SPECIFIED 07/21/2017 MARQUITA MALDONADO MD, Ot Z3A. 20 20 WEEKS GESTATION OF 07/28/2017 MARQUITA MALDONADO MD Ot Z36. 89 ENCOUNTER FOR OTHER SPECIFIED 07/28/2017 MARQUITA MALDONADO MD Ot Z3A. 20 20 WEEKS GESTATION OF 07/29/2017 MARQUITA MALDONADO MD Ot Z36. 89 ENCOUNTER FOR OTHER SPECIFIED 07/29/2017 MARQUITA MALDONADO MD, Ot Z3A. 20 20 WEEKS GESTATION OF 07/29/2017 MARQUITA MALDONADO MD Ot O80 ENCOUNTER FOR FULL-TERM UNCOMPLICATED DE 07/29/2017 MARQUITA MALDONADO MD Ot Z23 ENCOUNTER FOR IMMUNIZATION 07/29/2017 MARQUITA MALDONADO MD Ot Z37. 0 SINGLE LIVE 07/29/2017 MARQUITA MALDONADO MD, Ot Z3A. 39 39 WEEKS GESTATION OF 08/01/2017 MARQUITA MALDONADO MD Ot Z36. 89 ENCOUNTER FOR OTHER SPECIFIED 08/01/2017 MARQUITA MALDONADO MD Ot Z3A. 20 20 WEEKS GESTATION OF 08/01/2017 MARQUITA MALDONADO MD Ot Z36. 89 ENCOUNTER FOR OTHER SPECIFIED 08/01/2017 MARQUITA MALDONADO MD, Ot Z3A. 20 20 WEEKS GESTATION OF 08/01/2017 MARQUITA MALDONADO MD, Ot Z36. 89 ENCOUNTER FOR OTHER SPECIFIED 08/01/2017 MARQUITA MALDONADO MD, Ot3A. 20 20 WEEKS GESTATION OF 08/14/2017 MARQUITA MALDONADO MD, Ot Z36. 89 ENCOUNTER FOR OTHER SPECIFIED 08/14/2017 MARQUITA MALDONADO MD, Ot3A. 20 20 WEEKS GESTATION OF 10/29/2017 MARQUITA MALDONADO MD, Ot Z36. 89 ENCOUNTER FOR OTHER SPECIFIED 10/29/2017 MARQUITA MALDONADO MD, Ot3A. 20 20 WEEKS GESTATION OF Procedures Code Description Performed By Per formed On 5J8BALE DI VISION OF FEMALE PERINEUM, EXTERNAL AP 12/14/2014 5V5CNAE DI VISION OF FEMALE PERINEUM, EXTERNAL AP 07/28/2017 38L9HQO DE LIVERY OF PRODUCTS OF CONCEPTION, EXTE 07/28/2017 [id number] IN TRODUCTION OF OTH HORMONE INTO PERIPH 07/28/2017 Results Test Result Range Complete blood count (CBC) with automate d white blood cell (WBC) differential - 07/28/17 06:30 Blood leukocytes automated count (number/volume) 7.4 10*3/uL 4.3-11.0 Blood erythrocytes automated count (number/volume) 3.67 10*6/uL 4.35-5.85 Venous blood hemoglobin measurement (mass/volume) 11.2 g/dL 11.5-16.0 Blood hematocrit (volume fraction) 33 % 35-52 Automated erythrocyte mean corpuscular volume 89 [ foz_us] 80-99 Automated erythrocyte mean corpuscular h emoglobin (mass per erythrocyte) 31 pg 25-34 Automated erythrocyte mean corpuscular h emoglobin concentration measurement (mass/volume) 35 g/dL 32-36 Automated erythrocyte distribution width ratio 13. 0 % 10.0- 14.5 Automated blood platelet count (count/volume) 123 10*3/uL 130-400 Automated blood platelet mean volume measurement 12.7 [foz_us] 7.4-10.4 Automated blood neutrophils/100 leukocytes 64 % 42-75 Automated blood lymphocytes/100 leukocytes 28 % 12-44 Blood monocytes/100 leukocytes 7 % 0-12 Automated blood eosinophils/100 leukocytes 0 % 0-10 Automated blood basophils/100 leukocytes 0 % 0-10 Blood neutrophils automated count (number/volume) 4.7 10*3 1.8-7.8 Blood lymphocytes automated count (number/volume) 2.1 10*3 1.0-4.0 Blood monocytes automated count (number/volume) 0. 5 10*3 0.0-1.0 Automated eosinophil count 0.0 10*3/uL 0 .0-0.3 Automated blood basophil count (count/volume) 0.0 10*3/uL 0.0-0.1 Blood type T Indirect antibody screen pa deondre - 07/28/17 06:30 ABO+Rh group OP NRG Transfusion band number [id number] NRG Blood group antibody screen NEGATIVE NR G Complete blood count (CBC) with automate d white blood cell (WBC) differential - 07/29/17 06:37 Blood leukocytes automated count (number/volume) 8.1 10*3/uL 4.3-11.0 Blood erythrocytes automated count (number/volume) 3.32 10*6/uL 4.35-5.85 Venous blood hemoglobin measurement (mass/volume) 9.8 g/dL 11.5-16.0 Blood hematocrit (volume fraction) 30 % 35-52 Automated erythrocyte mean corpuscular volume 90 [ foz_us] 80-99 Automated erythrocyte mean corpuscular h emoglobin (mass per erythrocyte) 30 pg 25-34 Automated erythrocyte mean corpuscular h emoglobin concentration measurement (mass/volume) 33 g/dL 32-36 Automated erythrocyte distribution width ratio 13. 1 % 10.0- 14.5 Automated blood platelet count (count/volume) 111 10*3/uL 130-400 Automated blood platelet mean volume measurement 12.7 [foz_us] 7.4-10.4 Automated blood neutrophils/100 leukocytes 69 % 42-75 Automated blood lymphocytes/100 leukocytes 25 % 12-44 Blood monocytes/100 leukocytes 6 % 0-12 Automated blood eosinophils/100 leukocytes 0 % 0-10 Automated blood basophils/100 leukocytes 0 % 0-10 Blood neutrophils automated count (number/volume) 5.6 10*3 1.8-7.8 Blood lymphocytes automated count (number/volume) 2.0 10*3 1.0-4.0 Blood monocytes automated count (number/volume) 0. 5 10*3 0.0-1.0 Automated eosinophil count 0.0 10*3/uL 0 .0-0.3 Automated blood basophil count (count/volume) 0.0 10*3/uL 0.0-0.1 Encounters ACCT No. Visit Date/Time Discharge Status Pt. Type Provider Facility Loc./Unit Complaint [id number] 07/28/2017 06:10:00 018 15:25:00 DIS Inpatient MARQUITA MALDONADO MD [facility] LDRP INDUCTION [id number] 03/17/2017 09:28:00 018 23:59:59 CLS Outpatient MARQUITA MALDONADO MD [facility] RAD SURVEY [id number] 12/11/2016 15:16:00 017 23:59:59 CLS Outpatient MARQUITA MALDONADO MD [facility] RAD DATING [id number] 12/13/2014 18:52:00 015 12:35:00 DIS Inpatient MARQUITA MALDONADO MD [facility] LDRP INDUCTION [id number] 11/21/2014 15:46:00 015 16:06:00 DIS Outpatient MARQUITA MALDONADO MD [facility] WSo NON STRESS TEST [id number] 07/20/2014 09:29:00 015 23:59:59 CLS Outpatient MARQUITA MALDONADO MD [facility] RAD SURVEY [id number] 05/06/2014 13:48:00 015 23:59:59 CLS Outpatient MARQUITA MALDONADO MD [facility] RAD DATING [id number] 01/16/2018 09:00:00 01/16/2018 23:59:5 9 CLS Outpatient [facility] [place] [id number] 12/28/2013 11:16:53 12/28/2013 11:16: 53 DIS Outpatient [id number] 11/21/2014 16:00:06 ACT Document Registration
--- OUTSIDE RECORDS SUMMARY | 2019-05-04 06:24 | XMS REPORT ---
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 Name Role Phone Migration, Doctor Unavailable Unavailable PROBLEMS Type Condition ICD9-CM Code CIC83-IT Code Onset Dates Condition S tatus SNOMED Code Problem Generalized anxiety disorder F41.1 A ctive [id number] ALLERGIES No Information ENCOUNTERS Encounter Location Date Diagnosis [facility] [address] [facility] [id number] [address] [place] [phone] Jan, Generalized anxiety disorder F41.1 [facility] [address] [facility] [id number] [address] [place] [phone] Dec, Generalized anxiety disorder F41.1 [facility] [address] [facility] [id number] [place] [id number] Dec, [facility] [address] [facility] [id number] [address] [place] [phone] Dec, IMMUNIZATIONS No Known Immunizations SOCIAL HISTORY Never Assessed REASON FOR VISIT PLAN OF CARE VITAL SIGNS MEDICATIONS Unknown Medications RESULTS No Results PROCEDURES No Known procedures INSTRUCTIONS MEDICATIONS ADMINISTERED No Known Medications MEDICAL (GENERAL) HISTORY Type Description Date Surgical History tonsil 2010
--- OUTSIDE RECORDS SUMMARY | 2019-05-04 06:24 | XMS REPORT ---
Author Author Shama BARRON Organization [facility] Address [address] [place] [address] Care Team Providers Care Farm Assistant Name Role Phone BEATRICEKARLYY Unavailable PROBLEMS Type Condition ICD9-CM Code TIK90-OB Code Onset Dates Condition S tatus SNOMED Code Problem Generalized anxiety disorder F41.1 A ctive [id number] ALLERGIES No Information ENCOUNTERS Encounter Location Date Diagnosis [facility] [address] [facility] [id number] [address] [place] [phone] Jan, [facility] [address] [facility] [id number] [address] [place] [phone] Dec, Generalized anxiety disorder F41.1 [facility] [address] [facility] [id number] [place] [id number] Dec, [facility] [address] [facility] [id number] [address] [place] [phone] Dec, IMMUNIZATIONS No Known Immunizations SOCIAL HISTORY Never Assessed REASON FOR VISIT intake PLAN OF CARE Activity Details Follow Up 2 Weeks Reason: VITAL SIGNS MEDICATIONS Unknown Medications RESULTS No Results PROCEDURES Procedure Date Ordered Result Body Site Psych diagnostic evaluation, new patient Jan 02, 2018 INSTRUCTIONS MEDICATIONS ADMINISTERED No Known Medications MEDICAL (GENERAL) HISTORY Type Description Date Surgical History tonsil 2010
[2019-05-04] MEDS ORDERED: MEPIVACAINE (CARBOCAINE) 2% 50 ML VIAL INJ PRN (06:30)
[2019-05-04] MEDS ORDERED: MINERAL OIL CONCENTRATE 99.9% 15 ML UDC TOP PRN (06:30)
--- NOTE | 2019-05-04 06:32 | NUR ---
WELLINGTON BREWER presented to unit via ambulation from ED, accompanied by SO, with c/o INDUCTION. WELLINGTON BREWER weighed, gowned, voided, and to bed. EFHM and TOCO applied, VS taken. WELLINGTON BREWER oriented to bed controls, call light, TV, heat, and A/C controls. Pt and SO educated on new COVID 19 visiting policy and SO is aware that he must stay with pt until discharge or will not be allowed to re-enter floor
[2019-05-04 07:02] LABS: BASOPHILS % (AUTO) 0 % (0-10); EOSINOPHILS % (AUTO) 0 % (0-10); HEMATOCRIT 35 % (35-52); HEMOGLOBIN 11.6 G/DL (11.5-16.0); LYMPHOCYTES # (AUTO) 2.4 X 10^3 (1.0-4.0); LYMPHOCYTES % (AUTO) 28 % (12-44); MEAN CORPUSCULAR HEMOGLOBIN 30 PG (25-34); MEAN CORPUSCULAR HGB CONC 33 G/DL (32-36); MEAN CORPUSCULAR VOLUME 90 FL (80-99); MEAN PLATELET VOLUME 11.9 FL (7.4-10.4); MONOCYTES # (AUTO) 0.7 X 10^3 (0.0-1.0); MONOCYTES % (AUTO) 8 % (0-12); NEUTROPHILS # (AUTO) 5.5 X 10^3 (1.8-7.8); NEUTROPHILS % (AUTO) 64 % (42-75); PLATELET COUNT 148 10^3/uL (130-400); RED CELL DISTRIBUTION WIDTH 13.8 % (10.0-14.5); WHITE BLOOD COUNT 8.6 10^3/uL (4.3-11.0)
[2019-05-04] MEDS ORDERED: OXYTOCIN PRE-MIX DRIP 500 ML IV ONE (07:08)
[2019-05-04] MEDS ORDERED: OXYTOCIN PRE-MIX DRIP 500 ML IV SCH ×2 (07:10→11:51)
--- NOTE | 2019-05-04 07:38 | History & Physical-OB ---
OB - Chief Complaint & HPI Date/Time Date of Admission: Date of Admission: May 04, 2019 at 06:14 Date seen by a Provider: May 04, 2019 Time Seen by a Provider: 07:00 Chief Complaint/History OB-Reason for Admission/Chief: Induction of Labor Hx : 3 Hx Para: 2 Expected Date of Delivery: May 11, 2019 Gestational Age in Weeks: 39 Gestational Age in Days: 0 Admission Nurse Assessment Rev: Yes History of Labs GBS negative Allergies and Home Medications Allergies Coded Allergies: No Known Allergies (Verified Allergy, Unknown, 07/28/17) Patient Home Medication List Home Medication List Reviewed: Yes OB - History Hx of Present Care: Yes Ultrasounds: Normal mid trimester US Obstetrical Complications: None Medical Complications: None Delivery History Hx Blood Disorders: No Adverse Rxn to Tranfusion: No Patient Past Medical History No chronic medical problems Social History/Family History HIV/AIDS: No Recent Infectious Disease Expo: No Sexually Transmitted Disease: No Alcohol Use: Denies Use Recreational Drug Use: No Immunizations Hepatitis A: Yes Hepatitis B: Yes Tetanus Booster (TDap): More than 5yrs Date of Influenza Vaccine: Jan 01, 2019 OB - Admission Exam Physical Exam Vitals: Vital Signs 05/04/19 05/04/19 06:49 06:50 Temp 37.0 Pulse 89 Resp 18 B/P (MAP) 104/69 (81) Pulse Ox 99 O2 Delivery Room Air HEENT: Moist Membranes Heart: Rhythm Normal Lungs: Clear Abdomen: Gravid Reflexes: Normal Cervical Dilatation: 2cm Effacement: 75% Station: -3 Membranes: Intact Heart Rate: 140's Accelerations: Accelerations Present Short Term Variability: Present 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 Variability: Average (6-25) Contractions on Admission: >10 Minutes Apart Intensity: Mild Anthony Scoring Tool (Modified) Dilation (cm): 3-4cm (2) Effacement (%): 51-79% (2) Descent/Station: -3 (0) Cervix Consistency: Medium(1) Cervix Position: Middle/Mid-Position (1) Add 1 point for: Each previous vaginal delivery (1) Anthony Score: 8 Labs Laboratory Tests Test 05/04/19 06:50 Range/Units White Blood Count 8.6 4.3-11.0 10^3/uL Red Blood Count 3.87 L 4.35-5.85 10^6/uL Hemoglobin 11.6 11.5-16.0 G/DL Hematocrit 35 35-52 % Mean Corpuscular Volume 90 80-99 FL Mean Corpuscular Hemoglobin 30 25-34 PG Mean Corpuscular Hemoglobin Concent 33 32-36 G/DL Red Cell Distribution Width 13.8 10.0-14.5 % Platelet Count 148 130-400 10^3/uL Mean Platelet Volume 11.9 H 7.4-10.4 FL Neutrophils (%) (Auto) 64 42-75 % Lymphocytes (%) (Auto) 28 12-44 % Monocytes (%) (Auto) 8 0-12 % Eosinophils (%) (Auto) 0 0-10 % Basophils (%) (Auto) 0 0-10 % Neutrophils # (Auto) 5.5 1.8-7.8 X 10^3 Lymphocytes # (Auto) 2.4 1.0-4.0 X 10^3 Monocytes # (Auto) 0.7 0.0-1.0 X 10^3 Eosinophils # (Auto) 0.0 0.0-0.3 10^3/uL Basophils # (Auto) 0.0 0.0-0.1 10^3/uL OB - Assessment/Plan/Diagnosis Assessment Assessment: induction of labor (at 39 weeks) Admission Dx IUP at 39 weeks Admission Status: Inpatient Order (span 2 midnights) Reason for Inpatient Admission: AROM and L&D Plan Plan: Induction Induction Method: AROM Other Plan -Epidural -Pitocin if necessary MARQUITA MALDONADO MD May 04, 2019 07:38
[2019-05-04] MEDS ORDERED: fentaNYL 2 mcg/ml BUPIVA 0.125 100 ML ONE (08:06)
[2019-05-04] MEDS ORDERED: BUPIVACAINE 0.25% 30 ML (SENSORCAINE) VIAL ONE (08:38)
[2019-05-04] MEDS ORDERED: LIDOCAINE PF 2% 5 ML (XYLOCAINE) VIAL ONE (08:38)
[2019-05-04] MEDS ORDERED: fentaNYL INJECTION 100 MCG/2 ML AMP ONE (08:39)
--- NOTE | 2019-05-04 08:46 | NUR ---
0846 Diana OLIVO CRNA here for epidural placement. Procedure explained, consent reviewed and signed by anesthesia. Questions answered to patient's satisfaction. Time out taken to verify correct patient/procedure. 0854 Patient up to side of bed, assisted into sitting position. 0859 Betadine prep done x3 and sterile drape applied. 0901 Local done, see anesthesia record. 0905 Test dose given, see anesthesia record for drug and dosage. Epidural catheter secured in place. Epidural placement complete. 0911 Assisted back into bed, monitors adjusted. Epidural dosed, see anesthesia record. Epidural of Sufenta/Bupvicaine @12cc/hr stated per pump. Patient tolerated procedure well.
[2019-05-04] MEDS ORDERED: LACTATED RINGERS 1,000 ML IV SCH (09:17)
[2019-05-04] MEDS ORDERED: diphenhydrAMINE 50 MG/ML INJ (BENADRYL) IV PRN (09:30)
[2019-05-04] MEDS ORDERED: EPIDURAL (fentaNYL 2 MCG/ML BUPIVA 0.125%)100 ML BAG EPI PRN (09:30)
[2019-05-04] MEDS ORDERED: ONDANSETRON 4 MG/2 ML (SDV) Z0FRAN IV PRN (09:30)
[2019-05-04] MEDS ORDERED: NALOXONE 0.4 MG/ML 1 ML (NARCAN) VIAL IV PRN (09:30)
--- NOTE | 2019-05-04 11:51 | OB Labor & Delivery Record ---
L&D History Date of Service Date of Service: May 04, 2019 History Expected Date of Delivery: May 11, 2019 Gestational Age in Weeks: 39 Hx : 3 Hx Para: 2 Complications Events: Routine care Operative Indications (Cesarea: N/A-Vaginal Delivery Intrapartal Events: None L&D Stage1 Stage One Onset of Labor - Date: May 04, 2019 Onset of Labor - Time: 07:00 Monitors and Tracing Monitor Mode: Internal Heart Rate: 130 Monitor Accelerations: Uniform Monitor Decelerations: Early Section Repairer Variability: Average (6-10) Short Term Variability: Present Presentation: Vertex Vital Signs VS - Last 72 Hours, by Label 05/04/19 05/04/19 05/04/19 05/04/19 06:49 06:50 07:21 07:36 Temp 37.0 37.0 36.9 Pulse 89 89 77 73 Resp 18 18 18 18 B/P (MAP) 104/69 (81) 102/66 (78) 105/65 (78) Pulse Ox 99 99 O2 Delivery Room Air Room Air Room Air Room Air 05/04/19 05/04/19 05/04/19 05/04/19 07:50 08:08 08:22 08:37 Pulse 83 77 73 81 Resp 18 18 18 18 B/P (MAP) 104/66 (79) 110/72 (85) 108/71 (83) 120/95 (103) O2 Delivery Room Air Room Air Room Air Room Air 05/04/19 05/04/19 05/04/19 05/04/19 08:54 08:56 08:59 09:01 Pulse 86 91 85 84 Resp 18 18 18 18 B/P (MAP) 109/58 (75) 115/64 (81) 115/67 (83) 107/65 (79) Pulse Ox 94 100 O2 Delivery Room Air Room Air Room Air Room Air 05/04/19 05/04/19 05/04/19 05/04/19 09:05 09:08 09:12 09:15 Pulse 89 86 89 74 Resp 18 18 18 18 B/P (MAP) 106/68 (81) 108/68 (81) 111/63 (79) 104/62 (76) Pulse Ox 98 98 O2 Delivery Room Air Room Air Room Air Room Air 05/04/19 05/04/19 05/04/1924/20 09:17 09:20 09:24 09:38 Temp 36.9 Pulse 82 77 82 78 Resp 18 18 18 18 B/P (MAP) 107/65 (79) 104/63 (77) 102/61 (75) 100/64 (76) Pulse Ox 98 99 O2 Delivery Room Air Room Air Room Air Room Air 05/04/19 09:54 Pulse 71 Resp 18 B/P (MAP) 99/61 (74) Pulse Ox 100 O2 Delivery Room Air Signs of Distress by FHT Signs of Distress no Rupture of Membranes Spontaneous Ruture of Membrane: No Amniotic Membrane Rupture Time: 0700 Amniotic Membrane Fluid Desc.: Clear Induction/Anesthesia Epidural Cath Placement - Time: 0904 L&D Stage2 Stage Two Stage II Date: May 04, 2019 Stage II Time: 11:30 Monitors and Tracing Monitor Mode: Internal Heart Rate: 130 Monitor Accelerations: Uniform Monitor Decelerations: Early Senior Living Variability: Average (6-10) Short Term Variability: Present Position: Left Occiput Anterior Presentation: Vertex Signs of Distress by FHT Signs of Distress no Cord Descript/Complications Cord Vessel Description: 3 Vessels Delivery Type Delivery Method: Spontaneous Vaginal Anterior Shoulder: Left Episiotomy/Perineal Laceration Laceraction(s)/Extensions: Yes Episiotomy Description: Midline Sutures Used: Vicryl Condition of Infant Delivery 1 minute Comment: 8 5 minute Comment: 9 Condition of Infant Condition of Infant: Living Exam: No Observed Abnormalities Resuscitation Resuscitation: N/A - Spontaneous Resp L&D Stage3 Stage Three Stage III Date: May 04, 2019 Stage III Time: 11:35 Pictocin Pitocin Administration mu/min: 16 Pitocin ml/hr: 16 Pitocin Administration Comment: 1016 PITOCIN INCREASED PER PROTOCOL. Placenta Delivery Placenta Delivery: Spontaneous Delivery Summary Summary Estimated blood loss (mL): 200 Condition of Delivery Examined: Cervix Examined Post Hemorrhage: No Intervention Required none MARQUITA MALDONADO MD May 04, 2019 11:51
[2019-05-04] MEDS ORDERED: MEASLES,MUMPS,RUBELLA 1 EA INJ SQ ONE (12:00)
[2019-05-04] MEDS ORDERED: BENZOCAINE/MENTHOL (DERMOPLAST) 60 ML CAN TP PRN (12:00)
[2019-05-04] MEDS ORDERED: WITCH HAZEL(TUCKS) 40 EA JAR TOP PRN (12:00)
[2019-05-04] MEDS ORDERED: TETANUS,DIPTH,PERTUSS P/F (BOOSTRIX) 0.5 ML VIAL IM ONE (12:00)
--- NOTE | 2019-05-04 13:00 | NUR ---
REFER TO LABOR FLOW SHEET.
[2019-05-04] MEDS: IBUPROFEN 600 MG (MOTRIN) TAB PO SCH ×2 (13:47→20:09)
[2019-05-04] MEDS ORDERED: CATHETER FLUSH 10 ML SYR IV SCH ×2 (14:00)
--- NOTE | 2019-05-04 14:55 | NUR ---
PT ASSISTED UP TO THE BATHROOM. + VOID. + PERICARE. NEW PAD AND PANTIES ON. FRESH GOWN. PT ASSISTED TO W/C AND TRANSFERRED FROM -320 TO -311 IN STABLE CONDITION ACC BY THIS RN, S/O AND . PT TO BED. TEACHING DONE RE: ROOM SURROUNDINGS, INFO PACKET, CALL LIGHT/BED CONTROL. PT DENIES ANY NEEDS AT THIS TIME. FRESH ICE WATER PROVIDED.
[2019-05-04] MEDS: ACETAMINOPHEN 500 MG TAB (TYLENOL) PO SCH ×2 (16:19→23:59)
--- NOTE | 2019-05-04 18:56 | NUR ---
PT UP TO THE BATHROOM. NO NEEDS VOICED.
[2019-05-04] MEDS: DOCUSATE SODIUM 100 MG (COLACE) CAP PO SCH (20:09)
[2019-05-05] MEDS: ACETAMINOPHEN 500 MG TAB (TYLENOL) PO SCH (00:01)
[2019-05-05 03:05] VITALS: BP 93/62
[2019-05-05] MEDS: IBUPROFEN 600 MG (MOTRIN) TAB PO SCH ×2 (03:05→09:17)
[2019-05-05 05:59] LABS: BASOPHILS % (AUTO) 0 % (0-10); EOSINOPHILS # (AUTO) 0.1 10^3/uL (0.0-0.3); EOSINOPHILS % (AUTO) 1 % (0-10); HEMATOCRIT 31 % (35-52); LYMPHOCYTES # (AUTO) 2.4 X 10^3 (1.0-4.0); LYMPHOCYTES % (AUTO) 29 % (12-44); MEAN CORPUSCULAR HEMOGLOBIN 30 PG (25-34); MEAN CORPUSCULAR HGB CONC 33 G/DL (32-36); MEAN CORPUSCULAR VOLUME 91 FL (80-99); MEAN PLATELET VOLUME 11.9 FL (7.4-10.4); MONOCYTES # (AUTO) 0.4 X 10^3 (0.0-1.0); MONOCYTES % (AUTO) 5 % (0-12); NEUTROPHILS # (AUTO) 5.6 X 10^3 (1.8-7.8); NEUTROPHILS % (AUTO) 66 % (42-75); PLATELET COUNT 140 10^3/uL (130-400); WHITE BLOOD COUNT 8.5 10^3/uL (4.3-11.0)
[2019-05-05] MEDS ORDERED: IBUP-844 PO (07:49)
--- NOTE | 2019-05-05 07:52 | Discharge Summary ---
Discharge Inst-Women's Serv Depart Medications New, Converted or Re-Newed RX: Other (no pharmacy was listed on chart, needs called in still) New Medications: Ibuprofen (Ibu) 600 Mg Tablet 600 MG PO Q6HR PRN for PAIN-MODERATE (5-7), #60 TAB 0 Refills Continued Medications: Jsi284/FA/Omega3/Dha/Fish Oil ( Gummies) 1 Each Tab.chew 2 EACH PO, TAB Follow Up/Instructions Goal/Follow Up: Follow up with Dr. Maldonado in 6 weeks. Activity Activity: Activity as Tolerated (avoid strenuous activity x 6 weeks) Nothing Inside Vagina: No Douching, No Copeland, No Tampons Diet Discharge Diet: Regular Diet Symptoms to Report to : Bleeding Excessive, Fever Over 101 Degrees F, Pain/Pressure in Chest, Vaginal Bleeding Increase, Cramps in Feet or Legs, Vaginal Discharge Foul, Dizziness/Fainting, Shortness of Breath For Any Problems or Questions: Contact Your Physician Copies To 1: MARQUITA MALDONADO MD, BETHANY N MD May 05, 2019 07:52
--- NOTE | 2019-05-05 08:00 | NUR ---
DR. CARTER HERE TO SEE PT.
[2019-05-05 09:16] VITALS: BP 99/57
[2019-05-05] MEDS: DOCUSATE SODIUM 100 MG (COLACE) CAP PO SCH (09:17)
--- NOTE | 2019-05-05 09:20 | NUR ---
PT IN BED, . VS OBTAINED. MEDS GIVEN PO; SEE EMAR FOR FURTHER. INITIAL SHIFT ASSESSMENT COMPLETED; SEE INTERVENTION FOR FURTHER. NO NEEDS VOICED. PLAN FOR DISCHARGE LATER TODAY. CALL LIGHT WITHIN REACH.
--- NOTE | 2019-05-05 09:31 | Anesthesia-Regional Post-Op ---
Regional Patient Condition Mental Status: Alert, Oriented x3 Circulation: Same as Pre-Op Headache: Absent Sensation: Full Recovery Motor Block: Absent Post Op Complications Complications None Follow Up Care/Instructions Patient Instructions None needed. Anesthesia/Patient Condition Patient is doing well, no complaints, stable vital signs, no apparent adverse anesthesia problems. No complications reported per nursing. JOYCE MCKEON CRNA May 05, 2019 09:30
--- NOTE | 2019-05-05 09:46 | NUR ---
RX CALLED INTO [facility] SPOKE WITH JEAN, PHARMACIST.
--- NOTE | 2019-05-05 11:40 | NUR ---
DISCHARGE PAPERS PROVIDED AND REVIEWED WITH PT, PT VERBALIZES UNDERSTANDING AND DENIES ANY NEEDS OR QUESTIONS AT THIS TIME. PAPER SIGNED.
--- NOTE | 2019-05-05 14:00 | NUR ---
PT UP IN THE CHAIR, INFANT.
--- NOTE | 2019-05-05 14:25 | NUR ---
PT DISCHARGED FROM WS-311 TO PERSONAL AUTO VIA W/C IN STABLE CONDITION ACC BY INFANT, S/O AND THIS RN.
--- NOTE | 2019-05-05 14:38 | Discharge Summary ---
Discharge Summary Hospital Course Hospital Course Date of Admission: May 04, 2019 at 06:14 Admission Diagnosis : Family Physician/Provider: Gregor Simeon MD Date of Discharge: 05/05/19 Discharge Diagnosis: s/p spontaneous vaginal delivery Hospital Course: Pt admitted for IOL and had uncomplicated and course. Labs and Pending Lab Test: Laboratory Tests 05/05/19 05:49: White Blood Count 8.5, Red Blood Count 3.38L, Hemoglobin 10.0L, Hematocrit 31L, Mean Corpuscular Volume 91, Mean Corpuscular Hemoglobin 30, Mean Corpuscular Hemoglobin Concent 33, Red Cell Distribution Width 14.0, Platelet Count 140, Mean Platelet Volume 11.9H, Neutrophils (%) (Auto) 66, Lymphocytes (%) (Auto) 29, Monocytes (%) (Auto) 5, Eosinophils (%) (Auto) 1, Basophils (%) (Auto) 0, Neutrophils # (Auto) 5.6, Lymphocytes # (Auto) 2.4, Monocytes # (Auto) 0.4, Eosinophils # (Auto) 0.1, Basophils # (Auto) 0.0 Home Meds Active Ibu (Ibuprofen) 600 Mg Tablet 600 Mg PO Q6HR PRN Reported Gummies (Jsk015/FA/Omega3/Dha/Fish Oil) 1 Each Tab.chew 2 Each PO Assessment/Pt DC Instructions See above Discharge Physical Examination Allergies: Coded Allergies: No Known Allergies (Verified Allergy, Unknown, 07/28/17) General Appearance: No Apparent Distress, WD/WN Respiratory: Lungs Clear, Normal Breath Sounds Cardiovascular: Regular Rate, Rhythm, No Murmur Gastrointestinal: Other (fundus firm below umbilicus) Skin: Normal Color, Warm/Dry Neurologic/Psychiatric: Alert Clinical Quality Measures DVT/VTE Risk/Contraindication: Risk Factor Score Per Nursin RFS Level Per Nursing on Admit: 1=Low/No VTE PPX KATHI CARTER MD May 05, 2019 14:38
== END 2019-05-05 14:25 | disposition home or self-care (01) | DRG 807 ==
LOC: LDRP 06:14
PROVIDERS: ADMIT Family Medicine; ATTEND Family Medicine
PROC: 10E0XZZ Delivery of Products of Conception, External Approach (ICD-10-PCS; principal; 2019-05-04)
PROC: 0W8NXZZ Division of Female Perineum, External Approach (ICD-10-PCS; 2019-05-04)
PROC: 10907ZC Drainage of Amniotic Fluid, Therapeutic from Products of Conception, Via Natural or Artificial Opening (ICD-10-PCS; 2019-05-04)
DX: O80 Encounter for full-term uncomplicated delivery (principal); Z37.0 Single live birth; Z3A.39 39 weeks gestation of pregnancy
CPT/HCPCS: 36415; 85025; 86850; 86900; 86901

== ENCOUNTER → 2021-06-29 | Outpatient (CLI) | payer OTHER, MEDICARE ==
--- NOTE | 2021-06-29 13:07 | Diagnostic Imaging Report ---
INDICATION: Right ankle pain and swelling. FINDINGS: Three views. There is considerable soft tissue swelling about the ankle. There is an avulsion fracture which appears to arise from the inferomedial aspect of the fibula. This is present between the fibula and the talus. This measures approximately 10 x 6 mm. The articulating surface of the talus appears normal as does the tibia. IMPRESSION: Avulsion fracture of the inferomedial fibula is noted measuring approximately 10 x 5 mm. Dictated by: Dictated on workstation # [id number]
== END ==
LOC: RAD 10:40
PROVIDERS: ATTEND Family Medicine
DX: S82.491A Other fracture of shaft of right fibula, initial encounter for closed fracture (principal); X58.XXXA Exposure to other specified factors, initial encounter
CPT/HCPCS: 73610

== ENCOUNTER 2022-11-13 16:29 | Outpatient (CLI) | payer OTHER ==
[~2022-11-13] VITALS: Ht 162.6 cm; Wt 88.2 kg
[~2022-11-13 16:29] MED LIST changes: -DOXY-444 PO; -IBUP-1780 PO; -LEVO88TA2 PO
[2022-11-13] MEDS ORDERED: LEVO88TA2 PO (17:01)
[2022-11-14] MEDS ORDERED: DOXY-444 PO (11:57)
[2022-11-14] MEDS ORDERED: IBUP-1780 PO (11:57)
== END 2022-11-14 07:39 | disposition home or self-care (01) ==
LOC: PREOP 16:29
PROVIDERS: ATTEND Obstetrics & Gynecology
DX: Z01.818 Encounter for other preprocedural examination (principal)

== ENCOUNTER → 2022-11-13 | Outpatient (CLI) | payer OTHER ==
[~2022-11-13] MED LIST changes: +DOXY-444 PO; +IBUP-1780 PO; +LEVO88TA2 PO
--- NOTE | 2022-11-13 09:47 | Diagnostic Imaging Report ---
PROCEDURE: US OB SINGLE FETUS <14 WKS. TECHNIQUE: Multiple real-time grayscale images were obtained over the gravid uterus in various projections. INDICATION: heart tones not detected. Uterus measures 10.7 x 4.5 x 8.3 cm. There is an intrauterine gestational sac containing a pole measuring approximately 7 weeks 5 days gestation. No heart motion is identified consistent with demise. No corrie-gestational sac hemorrhage is detected. Ovaries cannot be visualized. No adnexal mass or free fluid is detected. IMPRESSION: Findings consistent with 7 weeks 5 day demise. Dictated by: Dictated on workstation # [id number]
== END ==
LOC: RAD 09:08
PROVIDERS: ATTEND Family Medicine
DX: O36.8390 Maternal care for abnormalities of the fetal heart rate or rhythm, unspecified trimester, not applicable or unspecified (principal); Z3A.00 Weeks of gestation of pregnancy not specified
CPT/HCPCS: 76801

== ENCOUNTER 2022-11-14 10:27 | Day surgery (SDC) | payer OTHER ==
[2022-11-14] VITALS (11 sets, daily range): BP systolic 101–116; BP diastolic 61–73
[~2022-11-14] VITALS: Ht 162.6 cm; Wt 88.2 kg
[~2022-11-14 10:27] MED LIST changes: +LEVO88TA2 PO
[2022-11-14] MEDS ORDERED: LACTATED RINGERS 1,000 ML 1,000 ML IV PRN (10:45)
[2022-11-14] MEDS ORDERED: ceFAZolin INJECTION 2,000 MG in NS (IVPB) 50 ML 50 ML IV ONE (10:45)
[2022-11-14] MEDS ORDERED: LIDOCAINE PF 2% 5 ML VIAL ONE (11:26)
[2022-11-14] MEDS ORDERED: dexAMETHasone INJ 10 MG/ML 1 ML VIAL ONE (11:26)
[2022-11-14] MEDS ORDERED: fentaNYL INJECTION 100 MCG/2 ML VIAL ONE (11:26)
[2022-11-14] MEDS ORDERED: ONDANSETRON INJECTION 4 MG/2 ML (SDV) ONE (11:26)
[2022-11-14] MEDS ORDERED: MIDAZOLAM INJ 2 MG/2 ML VIAL ONE (11:26)
[2022-11-14] MEDS ORDERED: proPOfol INJECTION 200 MG/20 ML VIAL IV ONE (11:26)
--- NOTE | 2022-11-14 11:54 | Progress Note-Pre Operative ---
Pre-Operative Progress Note Date of Available H&P: Nov 13, 2022 Date H&P Reviewed: Nov 14, 2022 Time H&P Reviewed: 11:54 History & Physical: H&P Reviewed, No changes noted Pre-Operative Diagnosis: Missed AB Plan: suction D&C AAYUSH SILVEIRA DO Nov 14, 2022 11:54
--- NOTE | 2022-11-14 11:56 | OB/GYN Operative Report ---
Operative Report Date of Procedure:Nov 14, 2022 Preoperative Diagnosis: Missed Postoperative Diagnosis: Same Name of the Procedure: Suction D&C Surgeon: Aayush Silveira Stick Roller(s): [none] Anesthesia: General LMA Indications for Procedure: IUFD @ 7w5d (13wk by LMP) Findings of the Procedure:POC Complications: None Disposition: Counts correct x2 Stable to PACU Description of the Procedure: Informed consent was obtained and signed patient was taken to the OR Marciano. 6 placed under general LMA anesthesia placed in the dorsolithotomy position prepped and draped usual sterile fashion. A timeout was performed. A pelvic exam under anesthesia showed an enlarged uterus no adnexal masses. A weighted speculum was placed into the posterior vaginal vault and single-tooth tenaculum was used to grasp anterior lip of the cervix. A 7 Mozambican curved suction catheter was then inserted without any difficulty and the products of conception were removed via suction. There is noted to be a large amount of products of conception the 7 [place]ambican curved suction catheter was passed several times. We then increased to an 8 [place]amb[place] curved suction catheter and continue to remove the products of conception. We used a blunt curette to feel the edges of the uterine cavity and there was no further products of conception in the uterine cavity. The single-tooth and weighted speculum were then removed and the patient was taken to recovery room in stable condition. All my counts were correct x2. EBL was 200 cc fluids were 1000 cc and urine output was 100 cc. AAYUSH SILVEIRA DO Nov 14, 2022 11:56
[2022-11-14] MEDS ORDERED: IBUP-1780 PO (11:57)
[2022-11-14] MEDS ORDERED: DOXY-444 PO (11:57)
--- NOTE | 2022-11-14 11:57 | Discharge Inst-Simple/Standard ---
Discharge Inst-Standard Reconcile Patient Problems Problems Reviewed?: Yes Discharge Medications New, Converted or Re-Newed RX: Transmitted to Pharmacy Patient Instructions/Follow Up Plan of Care/Instructions/FU: Nothing in vagina for next 2 wk f/u 1wk postop Activity as Tolerated: Yes Discharge Diet: Regular Diet AAYUSH SILVEIRA DO Nov 14, 2022 11:57
[2022-11-14] MEDS ORDERED: OXYTOCIN INJECTION 10 UNIT/ML VIAL ONE ×2 (12:09→12:13)
[2022-11-14] MEDS ORDERED: KETOROLAC INJ 30 MG/ML VIAL ONE (12:36)
[2022-11-14] MEDS ORDERED: ONDANSETRON INJECTION 4 MG/2 ML (SDV) IVP PRN (12:45)
[2022-11-14] MEDS ORDERED: morphine INJ 10 MG/ML 1ML (SYR OR VIAL) IVP ONE (12:45)
[2022-11-14] MEDS ORDERED: fentaNYL INJECTION 100 MCG/2 ML VIAL IVP ONE (12:45)
[2022-11-14] MEDS ORDERED: morphine INJ 10 MG/ML 1ML (SYR OR VIAL) ONE (13:04)
== END 2022-11-14 14:21 | disposition home or self-care (01) ==
LOC: SDC 10:27
PROVIDERS: ATTEND Obstetrics & Gynecology
DX: O02.1 Missed abortion (principal)
CPT/HCPCS: 86850; 86900; 86901; 87081